=== PATIENT | female | born 1955 | race Caucasian/White ===

== ENCOUNTER 2018-05-12 06:52 | Emergency (ER) | payer OTHER ==
[~2018-05-12] VITALS: Ht 162.6 cm; Wt 68.0 kg
[~2018-05-12 06:52] MED LIST: DICLOFENAC SODI50 MG PO
== END 2018-05-12 14:35 | disposition home or self-care (01) ==
LOC: ER 06:52
DX: T81.89XA Other complications of procedures, not elsewhere classified, initial encounter (principal); H60.11 Cellulitis of right external ear; H70.891 Other mastoiditis and related conditions, right ear

== ENCOUNTER 2018-10-26 13:22 | Outpatient (CLI) | payer OTHER | END 2018-10-26 13:37 | disposition home or self-care (01) | LOC: MAMO-SONO 13:22 | DX: N60.11 Diffuse cystic mastopathy of right breast (principal); N60.12 Diffuse cystic mastopathy of left breast; Z12.31 Encounter for screening mammogram for malignant neoplasm of breast ==

== ENCOUNTER 2021-07-02 23:21 | Emergency (ER) | payer OTHER ==
[~2021-07-02] VITALS: Ht 162.6 cm; Wt 62.6 kg
[2021-07-02] MEDS ORDERED: LIPITOR40 M1 (23:46)
[2021-07-03] MEDS ORDERED: ZYNCOF 20-400120 ML PO (08:41)
[2021-07-03] MEDS ORDERED: ALBUTEROL2.5 MG/3 M IH (08:41)
[2021-07-03] MEDS ORDERED: ZITHROMAX500 MG PO (08:41)
== END 2021-07-03 09:06 ==
LOC: ER 23:21
DX: U07.1 COVID-19 (principal)

== ENCOUNTER → 2022-03-20 | Outpatient (CLI) | payer OTHER ==
[~2022-03-20] MED LIST changes: +ALBUTEROL2.5 MG/3 M IH; +LIPITOR40 M1; +ZITHROMAX500 MG PO; +ZYNCOF 20-400120 ML PO
== END | disposition home or self-care (01) ==
LOC: TOM 09:21
PROVIDERS: ATTEND Internal Medicine Gastroenterology
DX: R10.31 Right lower quadrant pain (principal)